=== PATIENT | female | born 1950 | race African-American/Black ===

== ENCOUNTER 2017-09-17 12:45 | Emergency (ER) | payer MEDICARE ==
[~2017-09-17] VITALS: Ht 436.9 cm; Wt 125.8 kg
[~2017-09-17 12:45] MED LIST: BENADRYL 50MG C50 MG PO
[2017-09-17] MEDS ORDERED: PREDNISONE50 MG PO (13:18)
[2017-09-17] MEDS ORDERED: VENTOLIN HFA IN (13:18)
[2017-09-17] MEDS ORDERED: BENZONATATE200 MG PO (13:18)
[2017-09-17] MEDS ORDERED: ZITHROMAX250 MG PO (13:18)
[2017-09-17 13:35] VITALS: BP 137/84
== END 2017-09-17 13:35 | disposition home or self-care (01) ==
LOC: ED 12:45
DX: J06.9 Acute upper respiratory infection, unspecified (principal); J45.909 Unspecified asthma, uncomplicated; I10 Essential (primary) hypertension